=== PATIENT | male | born 1965 | race Caucasian/White ===

== ENCOUNTER → 2023-09-18 | Outpatient (REF) | payer BC ==
[~2023-09-18] MED LIST: IOPAMIDOL 370 MG/ML 100 ML INFUS..BTL INJ ONE; SODIUM CHLORIDE 0.9% 250ML 250 ML ONE
== END ==
LOC: CT 07:50
PROVIDERS: ATTEND Urology
DX: R31.21 Asymptomatic microscopic hematuria (principal)
CPT/HCPCS: 74178; J7050; Q9967